=== PATIENT | male | born 2000 | race American Indian/Alaskan Native ===

== ENCOUNTER 2020-04-07 16:37 | Emergency (ER) | payer SELFPAY ==
--- NOTE | 2020-04-07 17:54 | Event Note ---
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 symptoms exacerbated by activity, symptoms relieved by nothing. This initial assessment/diagnostic orders/clinical plan/treatment(s) is/are subject to change based on patients health status, clinical progression and re- assessment by fellow clinical providers in the ED. Further treatment and workup at subsequent clinical providers discretion. Patient/guardian urged not to elope from the ED as their condition may be serious if not clinically assessed and managed. Initial orders include:
--- NOTE | 2020-04-07 18:33 | XRay Report ---
CHEST 2 VIEWS INDICATION / CLINICAL INFORMATION: Dyspnea. COMPARISON: None available. FINDINGS: SUPPORT DEVICES: None. HEART / MEDIASTINUM: No significant abnormality. LUNGS / PLEURA: No significant pulmonary or pleural abnormality. No pneumothorax. ADDITIONAL FINDINGS: No significant additional findings. IMPRESSION: 1. No acute findings. Signer Name: Etelvina Edge MD Signed: 04/07/2020 6:29 PM Workstation Name: [id number]
[2020-04-07] MEDS ORDERED: ONDANSETRON 4 MG ODT TAB PO ONE (20:11)
[2020-04-07] MEDS ORDERED: DICYCLOMINE 20 MG/2 ML INJ IM ONE (20:11)
--- NOTE | 2020-04-07 20:17 | Emergency Department Report ---
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 symptoms exacerbated by activity, symptoms relieved by nothing. MD Complaint: abdominal pain Onset/Timin -: days(s) Location: LLQ Radiation: LLQ, RLQ Migration to: no migration Severity: moderate Severity scale (0 -10): 4 Quality: cramping Consistency: intermittent Improves With: nothing Worsens With: eating, movement Associated Symptoms: nausea, vomiting. denies: diarrhea, fever, chills, dysuria - Related Data Previous Rx's Medication Instructions Recorded Last Taken Type Dicyclomine [Bentyl] 10 mg PO QID PRN #30 capsule 04/07/20 Unknown Rx Ondansetron [Zofran Odt] 4 mg PO Q8HR PRN #12 tab.rapdis 04/07/20 Unknown Rx cephALEXin [Keflex] 500 mg PO BID #14 cap 04/07/20 Unknown Rx traMADoL [Ultram] 50 mg PO Q6HR PRN #12 tablet 04/07/20 Unknown Rx Allergies Allergy/AdvReac Type Severity Reaction Status Date / Time No Known Allergies Allergy Unverified 04/07/20 16:42 ED Review of Systems ROS: Stated complaint: ABD CRAMPS SPASMS Other details as noted in HPI Constitutional: denies: chills, fever Eyes: denies: eye pain, eye discharge, vision change ENT: denies: ear pain, throat pain Respiratory: denies: cough, shortness of breath, wheezing Cardiovascular: denies: chest pain, palpitations Endocrine: no symptoms reported Gastrointestinal: abdominal pain, nausea. denies: diarrhea, melena Genitourinary: denies: urgency, dysuria, frequency, hematuria, discharge Musculoskeletal: denies: back pain, joint swelling, arthralgia Skin: denies: rash, lesions Neurological: denies: headache, weakness, paresthesias Psychiatric: denies: anxiety, depression Hematological/Lymphatic: as per HPI ED Past Medical Hx - Past Medical History Previous Medical History?: Yes Additional medical history: heart valve problemsq - Surgical History Past Surgical History?: No - Social History Smoking Status: Current Every Day Smoker Substance Use Type: Alcohol, Marijuana - Medications Home Medications: Home Medications Medication Instructions Recorded Confirmed Last Taken Type Dicyclomine [Bentyl] 10 mg PO QID PRN #30 capsule 04/07/20 Unknown Rx Ondansetron [Zofran Odt] 4 mg PO Q8HR PRN #12 tab.rapdis 04/07/20 Unknown Rx cephALEXin [Keflex] 500 mg PO BID #14 cap 04/07/20 Unknown Rx traMADoL [Ultram] 50 mg PO Q6HR PRN #12 tablet 04/07/20 Unknown Rx ED Physical Exam - General Limitations: No Limitations General appearance: alert, in no apparent distress - Head Head exam: Present: atraumatic, normocephalic - Eye Eye exam: Present: normal appearance - ENT ENT exam: Present: mucous membranes moist - Neck Neck exam: Present: normal inspection, full ROM. Absent: tenderness - Respiratory Respiratory exam: Present: normal lung sounds bilaterally. Absent: respiratory distress, wheezes, rales, rhonchi, stridor, chest wall tenderness - Cardiovascular Cardiovascular Exam: Present: regular rate, normal rhythm, normal heart sounds. Absent: systolic murmur, diastolic murmur, rubs, gallop - GI/Abdominal GI/Abdominal exam: Present: soft, normal bowel sounds. Absent: distended, tenderness, guarding, rebound, rigid, bruit, hernia - Rectal Rectal exam: Present: deferred - Extremities Exam Extremities exam: Present: normal inspection - Back Exam Back exam: Present: normal inspection, full ROM. Absent: tenderness, CVA tenderness (R), CVA tenderness (L) - Neurological Exam Neurological exam: Present: alert, oriented X3, CN II-XII intact, normal gait, reflexes normal. Absent: motor sensory deficit - Psychiatric Psychiatric exam: Present: normal affect, normal mood - Skin Skin exam: Present: warm (Is on the maximum tolerated no palpable triggering), dry, intact, normal color. Absent: rash ED Course Vital Signs 04/07/20 16:45 Temperature 97.3 F L Pulse Rate 119 H Respiratory 20 Rate Blood Pressure 149/91 O2 Sat by Pulse 97 Oximetry ED Medical Decision Making - Lab Data Result diagrams: 04/07/20 20:14 04/07/20 20:14 Labs 04/07/20 04/07/20 04/07/20 20:14 20:14 Unknown WBC 6.0 RBC 6.20 H Hgb 19.1 H Hct 54.0 H MCV 87 MCH 31 MCHC 35 H RDW 13.8 Plt Count 336 Lymph % (Auto) Ticket Broker Add Manual Diff Complete Total Counted 100 Seg Neutrophils % Ticket Broker Seg Neuts % (Manual) 27.0 L Band Neutrophils % 0 Lymphocytes % (Manual) 57.0 H Reactive Lymphs % (Man) 0 Monocytes % (Manual) 13.0 H Eosinophils % (Manual) 2.0 Basophils % (Manual) 1.0 Metamyelocytes % 0 Myelocytes % 0 Promyelocytes % 0 Blast Cells % 0 Nucleated RBC % Not Reportable Seg Neutrophils # Man 1.6 L Band Neutrophils # 0.0 Lymphocytes # (Manual) 3.4 Abs React Lymphs (Man) 0.0 Monocytes # (Manual) 0.8 Eosinophils # (Manual) 0.1 Basophils # (Manual) 0.1 Metamyelocytes # 0.0 Myelocytes # 0.0 Promyelocytes # 0.0 Blast Cells # 0.0 WBC Morphology Not Reportable Hypersegmented Neuts Not Reportable Hyposegmented Neuts Not Reportable Hypogranular Neuts Not Reportable Smudge Cells Not Reportable Toxic Granulation Not Reportable Toxic Vacuolation Not Reportable Dohle Bodies Not Reportable Pelger-Huet Anomaly Not Reportable David Rods Not Reportable Platelet Estimate Not Reportable Clumped Platelets Not Reportable Plt Clumps, EDTA Not Reportable Large Platelets Not Reportable Giant Platelets Not Reportable Platelet Satelliting Not Reportable Plt Morphology Comment Not Reportable RBC Morphology Normal Dimorphic RBCs Not Reportable Polychromasia Not Reportable Hypochromasia Not Reportable Poikilocytosis Not Reportable Anisocytosis Not Reportable Microcytosis Not Reportable Macrocytosis Not Reportable Spherocytes Not Reportable Pappenheimer Bodies Not Reportable Sickle Cells Not Reportable Target Cells Not Reportable Tear Drop Cells Not Reportable Ovalocytes Not Reportable Helmet Cells Not Reportable Bourgeois-[place]oss Landing Bodies Not Reportable Senath Rings Not Reportable Dar Cells Not Reportable Bite Cells Not Reportable Crenated Cell Not Reportable Elliptocytes Not Reportable Acanthocytes (Spur) Not Reportable Rouleaux Not Reportable Hemoglobin C Crystals Not Reportable Schistocytes Not Reportable Malaria parasites Not Reportable Pete Bodies Not Reportable Hem Pathologist Commnt No Sodium 138 Potassium 4.7 Chloride 96.8 L Carbon Dioxide 25 Anion Gap 21 BUN 23 H Creatinine 1.7 H Estimated GFR > 60 BUN/Creatinine Ratio 14 Glucose 98 Calcium 10.6 H Total Bilirubin 0.80 AST 32 ALT 22 Alkaline Phosphatase 111 Total Protein 9.2 H Albumin 5.6 H Albumin/Globulin Ratio 1.6 Lipase 17 Urine Color Martha Urine Turbidity Clear Urine pH 5.0 Ur Specific [place] 1.031 H Urine Protein >500 Urine Glucose (UA) Neg Urine Ketones 20 Urine Blood Sm Urine Nitrite Neg Urine Bilirubin Neg Urine Urobilinogen 2.0 Ur Leukocyte Esterase Neg Urine WBC (Auto) 26.0 H Urine RBC (Auto) 2.0 U Epithel Cells (Auto) 1.0 Hyaline Casts 6 Urine Mucus 2+ - Radiology Data Radiology results: report reviewed, image reviewed Findings Reporting MD: Etelvina Edge Dictation Time: April 07, 2020 17:29 Golf Range Attendant: Not available Game Programer Date: CHEST 2 VIEWS INDICATION / CLINICAL INFORMATION: Dyspnea. COMPARISON: None available. FINDINGS: SUPPORT DEVICES: None. HEART / MEDIASTINUM: No significant abnormality. LUNGS / PLEURA: No significant pulmonary or pleural abnormality. No pneumothorax. ADDITIONAL FINDINGS: No significant additional findings. IMPRESSION: 1. No acute findings. Signer Name: Etelvina Edge MD Signed: 04/07/2020 5:29 PM Workstation Name: [id number] - Medical Decision Making nausea and vomiting resolved , pt is tolerating po intake without symptoms, pain reduced to 1/10 at this time, plan dc to home with rx for bentyl, ultram, zofran, pt will continue to hydrate as directed and follow up pcp in 2-3 days. Critical care attestation.: If time is entered above; I have spent that time in minutes in the direct care of this critically ill patient, excluding procedure time. ED Disposition Clinical Impression: Mild dehydration Nausea & vomiting Qualifiers: Vomiting type: unspecified Vomiting Intractability: non-intractable Qualified Code(s): R11.2 - Nausea with vomiting, unspecified Disposition: DC-01 TO HOME OR SELFCARE Is pt being admited?: No Does the pt Need Aspirin: No Condition: Stable Instructions: Dehydration (ED), Acute Nausea and Vomiting (ED) Prescriptions: Dicyclomine [Bentyl] 10 mg PO QID PRN #30 capsule PRN Reason: abdominal spasm cephALEXin [Keflex] 500 mg PO BID #14 cap traMADoL [Ultram] 50 mg PO Q6HR PRN #12 tablet PRN Reason: Pain Ondansetron [Zofran Odt] 4 mg PO Q8HR PRN #12 tab.rapdis PRN Reason: Nausea And Vomiting Referrals: DOUG RIVERA MD [Staff Physician] - 3-5 Days Forms: Work/School Release Form(ED) Time of Disposition: 22:11
[2020-04-07] MEDS ORDERED: SODIUM CHLORIDE 0.9% 1000 ML 1,000 ML IV ONE (20:18)
[2020-04-07 20:26] LABS: Hemoglobin 19.1 gm/dl (11.8-15.2); Mean Corpuscular HGB Conc 35 % (32-34); Mean Corpuscular Volume 87 fl (84-94); Platelet Count 336 K/mm3 (140-440); Red Cell Distribution Width 13.8 % (13.2-15.2)
[2020-04-07 20:50] LABS: Alanine Aminotransferase 22 units/L (7-56); Albumin 5.6 g/dL (3.9-5); BUN/Creatinine Ratio 14; Blood Urea Nitrogen 23 mg/dL (9-20); Calcium 10.6 mg/dL (8.4-10.2); Hemolysis Index 18
[2020-04-07 21:05] LABS: RBC Morphology Normal; Total Cells Counted 100
[2020-04-07 21:37] LABS: Bilirubin,Urine NEG (Negative); Blood,Urine SM (Negative); Color,Urine Amber (Yellow); Hyaline Casts,Urine 6 /LPF; Mucus,Urine 2+ /HPF
[2020-04-07 21:39] LABS: Protein,Urine >500 mg/dL (Negative)
[2020-04-07 22:32] VITALS: BP 147/83
== END 2020-04-07 22:31 | disposition home or self-care (01) ==
LOC: ED 16:37
DX: E86.0 Dehydration (principal); R11.2 Nausea with vomiting, unspecified
CPT/HCPCS: 36415; 71046; 80053; 81001; 83690; 85007; 85025; 87086; 96360; 96372; 99284; J0500; J7030; Q0162